=== PATIENT | male | born 1995 | race Hispanic/Latino ===

== ENCOUNTER 2023-10-31 19:43 | Emergency (ER) | payer OTHER ==
[~2023-10-31] VITALS: Ht 170.2 cm; Wt 79.2 kg
[2023-10-31 21:20] VITALS: BP 129/77; TEMP 97.9; O2SAT 99
== END 2023-10-31 21:22 | disposition home or self-care (01) ==
LOC: M ED 19:43
DX: S05.11XA Contusion of eyeball and orbital tissues, right eye, initial encounter (principal); H11.31 Conjunctival hemorrhage, right eye; Y04.0XXA Assault by unarmed brawl or fight, initial encounter; Y92.481 Parking lot as the place of occurrence of the external cause; Y93.89 Activity, other specified; Y99.9 Unspecified external cause status